=== PATIENT | female | born 1995 | race African-American/Black ===

== ENCOUNTER 2021-04-19 17:27 | Emergency (ER) | payer SELFPAY ==
[~2021-04-19] VITALS: Ht 157.5 cm; Wt 63.0 kg
[2021-04-19] MEDS ORDERED: ONDANSETRON PF 4 MG/2 ML VIAL. IVP ONE (19:15)
[2021-04-19] MEDS ORDERED: FAMOTIDINE 20 MG/2 ML VIAL IVP ONE (19:15)
[2021-04-19] MEDS ORDERED: IV NORMAL SALINE 1000ML BAG 1,000 ML IV ONE (19:15)
--- NOTE | 2021-04-19 19:16 | PHYS DOC ---
Past Medical History Past Medical History: No Pertinent History (LEONEL DESAI APRN) Past Surgical History: No Surgical History (LEONEL DESAI APRN) General Adult EDM: Chief Complaint: NAUSEA/VOMITING/DIARRHEA HPI: HPI: Patient is a 25-year-old female that presents today for nausea and vomiting since this morning. Patient states she started feeling bad last night and then this morning she started vomiting, she has not kept any fluids down for the last 12 hours. She states she has had some stools today but none of them been loose in nature. Patient denies being around anybody has been sick or anyone in her household that has been ill. Significant other at the bedside does report patient having a slight cough as well. patient does not have the Covid vaccines. (LEONEL DESAI APRN) Review of Systems: Review of Systems: Constitutional: fever or chills. [] Eyes: Denies change in visual acuity. [] HENT: Denies nasal congestion or sore throat. [] Respiratory: Denies cough or shortness of breath. [] Cardiovascular: Denies chest pain or edema. [] GI: nausea, vomiting, denies bloody stools or diarrhea. [] : Denies dysuria. [] Musculoskeletal: Denies back pain or joint pain. [] Integument: Denies rash. [] Neurologic: Denies headache, focal weakness or sensory changes. [] Endocrine: Denies polyuria or polydipsia. [] Lymphatic: Denies swollen glands. [] Psychiatric: Denies depression or anxiety. [] (LEONEL DESAI APRN) Heart Score: C/O Chest Pain: N/A Risk Factors: Risk Factors: DM, Current or recent (<one month) smoker, HTN, HLP, family history of CAD, obesity. Risk Scores: Score 0 - 3: 2.5% MACE over next 6 weeks - Discharge Home Score 4 - 6: 20.3% MACE over next 6 weeks - Admit for Clinical Observation Score 7 - 10: 72.7% MACE over next 6 weeks - Early Invasive Strategies (LEONEL DESAI APRN) Current Medications: Current Medications Medications (Trade) Dose Ordered Sig/Brandy Start Time Stop Time Status Last Admin Dose Admin Famotidine (Pepcid Vial) 20 mg 1X ONCE 04/19/21 19:15 04/19/21 19:16 UNV Ondansetron HCl (Zofran) 4 mg 1X ONCE 04/19/21 19:15 04/19/21 19:16 UNV Sodium Chloride 1,000 ml @ 999 mls/hr 1X ONCE 04/19/21 19:15 04/19/21 20:15 UNV (LEONEL DESAI APRN) Physical Exam: PE: Constitutional: Well developed, well nourished, mild distress, non-toxic appearance. [] HENT: Normocephalic, atraumatic, bilateral external ears normal, oropharynx moist, no oral exudates, nose normal. [] Eyes: PERRLA, EOMI, conjunctiva normal, no discharge. [] Neck: Normal range of motion, no tenderness, supple, no stridor. [] Cardiovascular:Heart rate regular rhythm, no murmur [] Lungs & Thorax: Bilateral breath sounds clear to auscultation [] Abdomen: Bowel sounds hypoactive, tenderness noted in the left upper quadrant [] Skin: Warm, dry, no erythema, no rash. [] Back: No tenderness, no CVA tenderness. [] Extremities: No tenderness, no cyanosis, no clubbing, ROM intact, no edema. [] Neurologic: Alert and oriented X 3, normal motor function, normal sensory function, no focal deficits noted. [] Psychologic: Affect normal, judgement normal, mood normal. [] (LEONEL DESAI APRN) Current Patient Data: Labs: Laboratory Tests Test 04/19/21 19:00 04/19/21 19:06 04/19/21 19:17 Urine Collection Type Unknown Urine Color Red Urine Clarity Cloudy Urine pH 8.0 Urine Specific [place] 1.015 Urine Protein 30 mg/dL Urine Glucose (UA) Negative mg/dL Urine Ketones (Stick) >=80 mg/dL Urine Blood Large Urine Nitrite Negative Urine Bilirubin Negative Urine Urobilinogen Dipstick 1.0 mg/dL Urine Leukocyte Esterase Moderate Urine RBC Tntc /HPF Urine WBC 5-10 /HPF Urine Squamous Epithelial Cells Mod /LPF Urine Bacteria Moderate /HPF Urine Mucus Mod /LPF Bedside Urine HCG, Qualitative Hcg negative White Blood Count 9.4 x10^3/uL Red Blood Count 4.96 x10^6/uL Hemoglobin 9.8 g/dL Hematocrit 32.4 % Mean Corpuscular Volume 65 fL Mean Corpuscular Hemoglobin 20 pg Mean Corpuscular Hemoglobin Concent 30 g/dL Red Cell Distribution Width 21.7 % Platelet Count 243 x10^3/uL Neutrophils (%) (Auto) 81 % Lymphocytes (%) (Auto) 16 % Monocytes (%) (Auto) 2 % Eosinophils (%) (Auto) 0 % Basophils (%) (Auto) 1 % Neutrophils # (Auto) 7.6 x10^3/uL Lymphocytes # (Auto) 1.5 x10^3/uL Monocytes # (Auto) 0.2 x10^3/uL Eosinophils # (Auto) 0.0 x10^3/uL Basophils # (Auto) 0.1 x10^3/uL Platelet Estimate Pending Sodium Level 139 mmol/L Potassium Level 3.6 mmol/L Chloride Level 103 mmol/L Carbon Dioxide Level 23 mmol/L Anion Gap 13 Blood Urea Nitrogen 8 mg/dL Creatinine 0.9 mg/dL Estimated GFR (Cockcroft-Gault) 91.6 BUN/Creatinine Ratio 9 Glucose Level 118 mg/dL Calcium Level 9.0 mg/dL Total Bilirubin 0.5 mg/dL Aspartate Amino Transf (AST/SGOT) 17 U/L Alanine Aminotransferase (ALT/SGPT) 18 U/L Alkaline Phosphatase 82 U/L Total Protein 8.4 g/dL Albumin 4.5 g/dL Albumin/Globulin Ratio 1.2 Lipase 45 U/L Current Medications Medications (Trade) Dose Ordered Sig/Brandy Route PRN Reason Start Time Stop Time Status Last Admin Dose Admin Sodium Chloride 1,000 ml @ 999 mls/hr 1X ONCE IV 04/19/21 19:15 04/19/21 20:15 DC 04/19/21 19:37 Ondansetron HCl (Zofran) 4 mg 1X ONCE IVP 04/19/21 19:15 04/19/21 19:34 DC 04/19/21 19:37 Famotidine (Pepcid Vial) 20 mg 1X ONCE IVP 04/19/21 19:15 04/19/21 19:34 DC 04/19/21 19:37 Vital Signs: Vital Signs Date Time Temp Pulse Resp B/P (MAP) Pulse Ox O2 Delivery O2 Flow Rate FiO2 04/19/21 21:31 56 20 171/80 (110) 100 Room Air 04/19/21 21:01 59 20 162/82 (108) 100 Room Air 04/19/21 20:31 59 20 163/89 (113) 100 Room Air 04/19/21 20:00 57 20 149/80 (103) 100 Room Air 04/19/21 19:30 55 20 171/95 (120) 100 Room Air 04/19/21 19:27 98.4 58 18 160/74 (102) 100 Room Air 98.4 04/19/21 19:00 98.8 65 20 160/74 (102) 100 Room Air 98.8 (LEONEL DESAI APRN) EKG: EKG: [] (LEONEL DESAI APRN) Radiology/Procedures: Radiology/Procedures: [] (LEONEL DESAI APRN) Course & Med Decision Making: Course & Med Decision Making Pertinent Labs and Imaging studies reviewed. (See chart for details) 2100 reassessment of patient's done. Patient states that she feels better and has no nausea or abdominal pain at this time. She also informed that her urine looks like she has a slight bladder infection I will send a prescription to the pharmacy for that. Also spoke to patient about her hemoglobin being 9.8 patient states she has heavy menses, she has never been evaluated by a [employer] TECHNICIAN in the past. Patient will be given referrals for the [employer]ICE [employer] SC[employer] TECHNICIAN for further evaluation of heavy menses. Patient and family at the bedside are agreeable to the plan of care, patient will be discharged home (LEONEL DESAI APRN) Course & Med Decision Making Patients Care and treatment plan provided by ER Nurse Practitioner. I was available for consult. Patient's chart reviewed. (RADHA TORIBIO DO) Jaleesa Disclaimer: Jaleesa Disclaimer: This electronic medical record was generated, in whole or in part, using a voice recognition dictation system. (LEONEL DESAI APRN) Departure Departure Impression: Primary Impression: UTI (urinary tract infection) Qualified Codes: N39.0 - Urinary tract infection, site not specified Additional Impressions: Anemia Qualified Codes: D64.9 - Anemia, unspecified Nausea & vomiting Qualified Codes: R11.2 - Nausea with vomiting, unspecified Disposition: 01 HOME / SELF CARE / HOMELESS Condition: STABLE Referrals: NO PCP (PCP) CONSTANTINE RUIZ MD Patient Instructions: Anemia, Nonspecific-Brief, Nausea and Vomiting, Urinary Tract Infection Additional Instructions: Recommend a clear liquid diet for the next 12 to 24 hours and then advance diet as tolerated. Advised to stick with light foods such as toast, applesauce, rice, or potatoes. Take antibiotic Macrobid 1 tablet twice daily for 7 full days for urinary tract infection Follow-up with [facility] [employer] TECHNICIAN that was referred to Dr. Ruiz or one of the clinics that is listed on the brochure that was given to you for follow-up of anemia due to possible heavy menses Return to the emergency department if unable to keep fluids down, nausea gets worse, or you have abdominal pain that localizes to the right lower quadrant Scripts Ondansetron Hcl (ZOFRAN) 4 Mg Tablet 1 TAB PO PRN Q6-8HRS for nausea and vomiting, #5 TAB Prov: LEONEL DESAI BRAND ENGINEER 04/19/21 Nitrofurantoin Monohyd/M-Cryst (MACROBID 100 MG CAPSULE) 100 Mg Capsule 1 CAP PO BID for 7 Days, #14 CAP 0 Refills Prov: LEONEL DESAI BRAND ENGINEER 04/19/21 LEONEL DESAI BRAND ENGINEER Apr 19, 2021 19:16 RADHA TORIBIO I DO Apr 20, 2021 19:36
[2021-04-19 19:29] LABS: BASO # 0.1 x10^3/uL (0.0-0.2); BASO % 1 % (0-3); EOS % 0 % (0-3); HEMATOCRIT 32.4 % (36.0-47.0); HEMOGLOBIN 9.8 g/dL (12.0-15.5); LYMPH # 1.5 x10^3/uL (1.0-4.8); LYMPH % 16 % (24-48); MEAN CORPUSCULAR HEMOGLOBIN 20 pg (25-35); MEAN CORPUSCULAR HGB CONC 30 g/dL (31-37); MEAN CORPUSCULAR VOLUME 65 fL (79-100); MONO # 0.2 x10^3/uL (0.0-1.1); MONO % 2 % (0-9); NEUT # 7.6 x10^3/uL (1.8-7.7); NEUT % 81 % (31-73); PLATELET COUNT 243 x10^3/uL (140-400); RED BLOOD COUNT 4.96 x10^6/uL (3.50-5.40); RED CELL DISTRIBUTION WIDTH 21.7 % (11.5-14.5); WHITE BLOOD COUNT 9.4 x10^3/uL (4.0-11.0)
[2021-04-19 19:31] LABS: BILIRUBIN,URINE NEGATIVE (NEG); CLARITY,URINE CLOUDY; COLOR,URINE RED; NITRITE,URINE NEGATIVE (NEG); PROTEIN,URINE 30 mg/dL (NEG-TRACE)
[2021-04-19 19:36] LABS: CREATININE 0.9 mg/dL (0.6-1.0); GFR 91.6; POTASSIUM 3.6 mmol/L (3.5-5.1)
[2021-04-19 19:42] LABS: ALBUMIN 4.5 g/dL (3.4-5.0); ALBUMIN/GLOBULIN RATIO 1.2 (1.0-1.7); TOTAL BILIRUBIN 0.5 mg/dL (0.2-1.0); TOTAL PROTEIN 8.4 g/dL (6.4-8.2)
[2021-04-19 19:49] LABS: BACTERIA,URINE MODERATE /HPF (0-FEW); RBC,URINE TNTC /HPF (0-2)
[2021-04-19] MEDS ORDERED: NITR100C62 PO (21:15)
[2021-04-19] MEDS ORDERED: ONDA4TAB7 PO (21:15)
[2021-04-19 21:31] VITALS: BP 171/80
[2021-04-19 22:24] LABS: PLT ESTIMATE ADEQUATE (ADEQUATE)
[2021-04-19 22:25] LABS: ANISOCYTOSIS MOD; HYPOCHROMIA MARKED; MICROCYTOSIS MARKED; POLYCHROMASIA SLIGHT
== END 2021-04-19 21:40 | disposition home or self-care (01) ==
LOC: ER 17:27
DX: N39.0 Urinary tract infection, site not specified (principal); D64.9 Anemia, unspecified; R11.2 Nausea with vomiting, unspecified
CPT/HCPCS: 36415; 80053; 81001; 81025; 83690; 85025; 87086; 96361; 96374; 96375; 99285; J2405; J3490; J7030